=== PATIENT | male | born 1975 | race Caucasian/White ===

== ENCOUNTER 2020-08-24 12:49 | Emergency (ER) | payer SELFPAY ==
[~2020-08-24] VITALS: Ht 165.1 cm; Wt 70.4 kg
[2020-08-24 12:54] VITALS: BP 139/105
--- NOTE | 2020-08-24 13:27 | Diagnostic Imaging Report ---
INDICATION: Fall with right wrist pain and swelling. COMPARISON: None. DISCUSSION: Three views of the right wrist were obtained. Nondisplaced fracture involving the base of the right fifth metacarpal is better seen on dedicated hand views from the same day. No other fracture or dislocation. Joint spaces are maintained. Alignment is anatomic. Soft tissues are unremarkable. IMPRESSION: 1. Nondisplaced fracture involving the base of the right fifth metacarpal is better seen on the dedicated hand views. Dictated by: Dictated on workstation # [id number]
--- NOTE | 2020-08-24 13:42 | Diagnostic Imaging Report ---
INDICATION: Fall with right hand pain and swelling. COMPARISON: None. DISCUSSION: Three views of the right hand were obtained. There is a nondisplaced fracture involving the base of the right fifth metacarpal. No definite intra-articular extension. No dislocation. Soft tissues are unremarkable. Alignment is anatomic. No foreign body. IMPRESSION: 1. Nondisplaced fracture involving the base of the right fifth metacarpal. Dictated by: Dictated on workstation # [id number]
[2020-08-24] MEDS ORDERED: ACHD5005 PO (13:54)
--- NOTE | 2020-08-24 14:01 | ED Upper Extremity ---
General Chief Complaint: Upper Extremity Stated Complaint: RIGHT HAND INJ Nursing Triage Note: Patient states he was playing football on Tuesday and fell, landing on a tree stump with his right wrist. Patient reports continued pain and swelling in his hand and wrist. Nursing Sepsis Screen: No Definite Risk Source: patient History of Present Illness Date Seen by Provider: August 24, 2020 Time Seen by Provider: 12:55 Initial Comments Patient is a 44-year-old right-handed male presents with a right hand injury after falling earlier today during football game. Patient reports tenderness and swelling over the right fifth metacarpal bone. There is no obvious or gross deformity. There is no finger or joint involvement. The pain is rated described as dull rated moderate to severe and worse with hand use and palpation. No other injuries or pain complaints. Injury occurred just prior to ED arrival. Onset: just prior to arrival Severity: moderate Pain/Injury Location: right hand Method of Injury: direct blow Modifying Factors: Improves With Other Allergies and Home Medications Allergies Coded Allergies: acetaminophen (Verified Adverse Reaction, Unknown, 08/24/20) propoxyphene (Verified Adverse Reaction, Unknown, 08/24/20) Home Medications Hydrocodone/Acetaminophen 1 Each Tablet, 1 TAB PO Q4H PRN for PAIN-MODERATE (5- 7) Prescribed by: NUBIA SHERMAN on 08/24/20 4234 Last Action: New Order Patient Home Medication List Home Medication List Reviewed: Yes Review of Systems Constitutional: see HPI EENTM: see HPI Respiratory: see HPI Cardiovascular: see HPI Gastrointestinal: see HPI Genitourinary: see HPI Musculoskeletal: see HPI Skin: see HPI Psychiatric/Neurological: See HPI All Other Systems Reviewed Negative Unless Noted: Yes Past Rnniqjy-Qpgalc-Zyhdal Hx Past Med/Social Hx: Reviewed Nursing Past Med/Soc Hx Patient Social History Alcohol Use: Occasionally Uses Smoking Status: Current Someday Smoker Type Used: Cigarettes 2nd Hand Smoke Exposure: No Recent Infectious Disease Expo: No Recent Hopitalizations: No Seasonal Allergies Seasonal Allergies: No Past Medical History Surgeries: No Respiratory: No Cardiac: No Neurological: No Genitourinary: Yes Kidney Stones Gastrointestinal: No Musculoskeletal: No Endocrine: No HEENT: No Cancer: No Psychosocial: No Integumentary: No Physical Exam Vital Signs Vital Signs - First Documented 08/24/20 12:54 Temp 36.6 Pulse 95 Resp 18 B/P (MAP) 139/105 (116) Pulse Ox 98 O2 Delivery Room Air Capillary Refill : Less Than 3 Seconds Height, Weight, BMI Height: '" Weight: lbs. oz. kg; 25.00 BMI Method: General Appearance: WD/WN, no apparent distress Wrist: Yes normal inspection, Yes non-tender, Yes no evidence of injury, Yes normal ROM, Yes abrasions Hand: Right, soft tissue tenderness (Right fifth metacarpal), swelling Neurologic/Tendon: normal sensation, normal motor functions Neurologic/Psychiatric: no motor/sensory deficits, alert, oriented x 3 Skin: normal color Progress/Results/Core Measures Results/Orders My Orders Orders - NUBIA SHERMAN DO Hand 3 View Right (08/24/20 13:06) Wrist 3 View Right (08/24/20 13:06) Nursing Communication (Order) (08/24/20 13:51) Vital Signs/I&O 08/24/20 12:54 Temp 36.6 Pulse 95 Resp 18 B/P (MAP) 139/105 (116) Pulse Ox 98 O2 Delivery Room Air Blood Pressure Mean: 116 Departure Communication (Admissions) Right hand/wrist: Nondisplaced right fifth metacarpal fracture per radiology report. Isolated right hand injury with fifth metacarpal fracture per radiology report. Patient placed in splint and given pain medications. Instructions to follow-up with PCP for orthopedic referral and 5 to 7 days. Return precautions reviewed. Impression Primary Impression: Right hand fracture Disposition: 01 HOME, SELF-CARE Condition: Stable Departure-Patient Inst. Decision time for Depature: 14:01 Referrals: NO,LOCAL PHYSICIAN (PCP/Family) Primary Care Physician Patient Instructions: Hand Fracture (DC) Add. Discharge Instructions: Please wear his splint and keep elevated at rest. Take ibuprofen for pain and hydrocodone as needed for additional relief. Follow-up with your PCP in the next 1 to 2 days for referral to orthopedic surgeon for further evaluation.. Return to the ED if new or worsening symptoms. All discharge instructions reviewed with patient and/or family. Voiced understanding. Scripts Hydrocodone/Acetaminophen (Hydrocodone-Acetamin 5-325 mg) 1 Each Tablet 1 TAB PO Q4H PRN for PAIN-MODERATE (5-7), #10 TAB Prov: NUBIA SHERMAN DO 08/24/20 NUBIA SHERMAN DO August 24, 2020 14:01
== END 2020-08-24 14:25 | disposition home or self-care (01) ==
LOC: ER FS 12:53
DX: S62.346A Nondisplaced fracture of base of fifth metacarpal bone, right hand, initial encounter for closed fracture (principal); F17.210 Nicotine dependence, cigarettes, uncomplicated; Z88.6 Allergy status to analgesic agent; Z88.8 Allergy status to other drugs, medicaments and biological substances; W21.01XA Struck by football, initial encounter; Y93.61 Activity, american tackle football
CPT/HCPCS: 29125; 73110; 73130

== ENCOUNTER 2021-01-23 14:39 | Emergency (ER) | payer SELFPAY ==
[~2021-01-23] VITALS: Ht 165 cm; Wt 69.0 kg
[~2021-01-23 14:39] MED LIST: ACHD5005 PO
--- NOTE | 2021-01-23 15:03 | ED General ---
General Chief Complaint: Rib Pain Stated Complaint: COUGH; RIB PAIN Nursing Triage Note: PT REPORTS HE WAS SPARRINGWITH HIS NEPHEW A FEW DAYS AGO AND GOT HIT IN THE LEFT SIDE RIB AREA AND HE HAS PAIN AND HAS BEEN COUGHING. Source of Information: Patient History of Present Illness Date Seen by Provider: Jan 23, 2021 Time Seen by Provider: 14:58 Initial Comments 45-year-old male presenting with complaints of left-sided rib pain. He states about 2 weeks ago he had actually swallowed some water and coughed that up. But he was coughing hard enough that it hurt his ribs and chest. Then a few days ago he was boxing and sparring with his nephew who is 6 foot 8 and pretty strong according to the patient. He had been hit in the ribs and chest multiple times. He was having pain to the left ribs. There was some bruising but that has all faded. He still has some continued tenderness in that area. He states he does not like to take medication so he is not taking anything for the pain. He continues to cough up some white thick phlegm. He denies any fever or chills. He has had no nausea, vomiting, diarrhea, blood in his urine, blood in the stool Modifying Factors: worse with Movement Associated Systoms: Chest Pain (Left lateral rib pain), Cough; No Diaphoresis, No Fever/Chills, No Headaches, No Loss of Appetite, No Malaise, No Nausea/Vomiting, No Rash, No Seizure, No Shortness of Air, No Syncope, No Weakness Allergies and Home Medications Allergies Coded Allergies: acetaminophen (Verified Adverse Reaction, Unknown, 08/24/20) propoxyphene (Verified Adverse Reaction, Unknown, 08/24/20) Patient Home Medication List Home Medication List Reviewed: Yes Hydrocodone/Acetaminophen (Hydrocodone-Acetamin 5-325 mg) 1 Each Tablet, 1 TAB PO Q4H PRN for PAIN-MODERATE (5-7) Prescribed by: NUBIA SHERMAN on 08/24/20 0561 Review of Systems Review of Systems Constitutional: No chills, No fever EENTM: no symptoms reported Respiratory: cough; No short of breath, No stridor, No wheezing Cardiovascular: see HPI; No edema, No palpitations Gastrointestinal: no symptoms reported Genitourinary: see HPI; No dysuria, No hematuria Musculoskeletal: see HPI Skin: see HPI Psychiatric/Neurological: Denies Headache, Denies Numbness, Denies Paresthesia Past Pjqaksn-Ecqusj-Hmrgkn Hx Patient Social History Tobacco Use?: Yes Tobacco type used: Cigarettes Smoking Status: Current Everyday Smoker Use of E-Cig and/or Vaping dev: No Substance use?: No Alcohol Use?: Yes Alcohol type: Beer Alcohol Frequency: Daily Pt feels they are or have been: No Seasonal Allergies Seasonal Allergies: No Past Medical History Surgeries: No Respiratory: No Cardiac: No Neurological: No Genitourinary: Yes Kidney Stones Gastrointestinal: No Musculoskeletal: No Endocrine: No HEENT: No Cancer: No Psychosocial: No Integumentary: No Physical Exam Vital Signs Vital Signs - First Documented 01/23/21 14:50 Temp 36.7 Pulse 109 Resp 14 B/P (MAP) 144/91 (108) Pulse Ox 97 O2 Delivery Room Air Capillary Refill : Less Than 3 Seconds Height, Weight, BMI Height: '" Weight: lbs. oz. kg; 25.00 BMI Method: General Appearance: No Apparent Distress, Other (appears older than stated age) HEENT: PERRL/EOMI, Pharynx Normal Neck: Full Range of Motion, Normal Inspection, Non Tender, Supple Respiratory: Lungs Clear, Normal Breath Sounds, No Accessory Muscle Use, No Respiratory Distress, Other (tender to palpation left lateral ribs. no crepitus) Cardiovascular: Regular Rate, Rhythm, Normal Peripheral Pulses Gastrointestinal: Normal Bowel Sounds, No Pulsatile Mass, Non Tender, Soft Rectal: Deferred Back: No No CVA Tenderness Extremity: Normal Capillary Refill, Normal Inspection, No Pedal Edema Neurologic/Psychiatric: Alert, Oriented x3 Skin: Normal Color, Warm/Dry; No Ecchymosis Progress/Results/Core Measures Suspected Sepsis SIRS Temperature: Pulse: 109 Respiratory Rate: 14 Blood Pressure 144 /91 Mean: 108 Results/Orders My Orders Orders - CON JIMENEZ MD Ribs/Bilateral With Chest (01/23/21 14:55) Vital Signs/I&O 01/23/21 01/23/21 14:50 15:54 Temp 36.7 36.7 Pulse 109 89 Resp 14 14 B/P (MAP) 144/91 (108) 132/84 Pulse Ox 97 97 O2 Delivery Room Air Room Air Capillary Refill : Less Than 3 Seconds Blood Pressure Mean: 108 Progress Note : Progress Note xray of chest and bilateral ribs ordered. No acute definite fracture on my review of the images. No infiltrate, effusion, pneumothorax. Counseled patient on the findings and that the radiologist had not read them yet. He was anxious to leave and stated that if he did not have pneumonia and no big obvious rib fracture he felt like he was "good to go." Counseled to alternate ice and heat to the painful area on his ribs. Whether is just bruised or if there is a crack and can feel the same. He could try using Tylenol or ibuprofen for pain. Patient again was adamant that he would not take any medications. Counseled on follow-up and return precautions. Diagnostic Imaging Diagonstic Imaging: Xray Plain Films/CT/US/NM/MRI: chest Comments [facility]. [place], [place] NAME: JOHN PAZ [facility] REC#: [id number] PT STATUS: DEP ER : 1975 PHYSICIAN: CON JIMENEZ MD ADMIT DATE: 01/23/21/ER FS Signed Date of Exam:01/23/21 RIBS/BILATERAL WITH CHEST CLINICAL INDICATION: Patient was boxing with his nephews. Patient has bilateral rib pain with the left side more than the right. EXAMS: Chest x-ray, AP and lateral views. X-ray series of the ribs bilaterally. COMPARISONS: None. FINDINGS: LUNGS/ PLEURA: Likely 6 mm calcified granuloma overlying the right upper lung field region. Lungs are otherwise clear. There is no pneumothorax. There is no pleural effusion. MEDIASTINUM: There are calcified lymph nodes in the right perihilar region. PULMONARY VASCULATURE: Unremarkable. HEART: Unremarkable. BONES/ EXTRATHORACIC SOFT TISSUE: Unremarkable. RIB SERIES: There are questionable fractures involving the lateral aspect of the left T10 rib and right T10 rib. Clinical correlation for pain would better evaluate. IMPRESSION: 1: There is no radiographic evidence of acute cardiopulmonary process. 2: There are questionable fractures involving the lateral aspect of the left T10 rib and right T10 rib. Clinical correlation for pain would better evaluate. 3: There is a calcified granuloma in the right upper lobe. Dictated by: Dictated on workstation # [id number] Dict: 01/23/21 1547 Trans: 01/23/211805 [id number] Interpreted by: JAMIR MARTÍNEZ MD Electronically signed by: JAMIR MARTÍNEZ MD 01/23/211805 Reviewed: Reviewed by Me Departure Impression Primary Impression: Bruised ribs Qualified Codes: S20.212A - Contusion of left front wall of thorax, initial encounter Additional Impressions: Left-sided chest wall pain Contusion of left chest wall Qualified Codes: S20.212A - Contusion of left front wall of thorax, initial encounter Disposition: HOME, SELF-CARE Condition: Stable Departure-Patient Inst. Decision time for Depature: 15:55 Referrals: NO,LOCAL PHYSICIAN (PCP) Primary Care Physician [facility] [place] Patient Instructions: Blunt Chest Trauma ED, Rib Fracture or Bruised Rib ED Add. Discharge Instructions: Try alternating ice and heat to your chest wall to help with pain and inflammation. If pain persists you could try taking Advil or Motrin (Ibuprofen) over the counter to help with pain and inflammation. The dose would be 600 mg or 3 pills every 8 hours as needed for pain/inflammation. Follow up with clinic if cough and pain is not improving. 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 Voiced understanding. CON JIMENEZ MD Jan 23, 2021 15:03
[2021-01-23 15:54] VITALS: BP 132/84
--- NOTE | 2021-01-23 16:01 | Diagnostic Imaging Report ---
CLINICAL INDICATION: Patient was boxing with his nephews. Patient has bilateral rib pain with the left side more than the right. EXAMS: Chest x-ray, AP and lateral views. X-ray series of the ribs bilaterally. COMPARISONS: None. FINDINGS: LUNGS/ PLEURA: Likely 6 mm calcified granuloma overlying the right upper lung field region. Lungs are otherwise clear. There is no pneumothorax. There is no pleural effusion. MEDIASTINUM: There are calcified lymph nodes in the right perihilar region. PULMONARY VASCULATURE: Unremarkable. HEART: Unremarkable. BONES/ EXTRATHORACIC SOFT TISSUE: Unremarkable. RIB SERIES: There are questionable fractures involving the lateral aspect of the left T10 rib and right T10 rib. Clinical correlation for pain would better evaluate. IMPRESSION: 1: There is no radiographic evidence of acute cardiopulmonary process. 2: There are questionable fractures involving the lateral aspect of the left T10 rib and right T10 rib. Clinical correlation for pain would better evaluate. 3: There is a calcified granuloma in the right upper lobe. Dictated by: Dictated on workstation # [id number]
== END 2021-01-23 16:00 | disposition home or self-care (01) ==
LOC: EDUNIT# 14:39 → ER FS 14:42
DX: S20.212A Contusion of left front wall of thorax, initial encounter (principal); F17.210 Nicotine dependence, cigarettes, uncomplicated; W22.8XXA Striking against or struck by other objects, initial encounter
CPT/HCPCS: 71111

== ENCOUNTER 2022-07-14 06:13 | Outpatient (CLI) | payer MEDICAID ==
[~2022-07-14] VITALS: Ht 165.1 cm; Wt 75.8 kg
[2022-07-19] MEDS ORDERED: SERT-413 PO (12:07)
[2022-07-19] MEDS ORDERED: CYCL5TAB PO (12:07)
[2022-07-19] MEDS ORDERED: OMEP-401 PO (12:07)
== END 2022-07-19 12:14 | disposition home or self-care (01) ==
LOC: PREOP 06:13
PROVIDERS: ATTEND Surgery
DX: Z01.818 Encounter for other preprocedural examination (principal)